=== PATIENT | male | born 1935 | race Hispanic/Latino ===

== ENCOUNTER 2016-11-30 08:00 | Outpatient (CLI) | payer MEDICARE ==
--- NOTE | 2016-11-30 13:59 | Cat Scan Report ---
CT CHEST WITHOUT CONTRAST: INDICATION: Pulmonary nodule. COMPARISON: 02/08/2016 and 10/07/[address] chest [address]s. FINDINGS: Noncontrast chest CT again demonstrates normal cardiomediastinal silhouette, atherosclerotic calcifications and streak artifact from left AICD with dual-chamber leads. Patent airway. Stable katelynn. Assessment of the great vessels and for detecting subtle lymphadenopathy limited due to lack of IV contrast. No aortic aneurysm. A precarinal lymph node measures 9 mm, axial image 56, series 3, previously 1.1 cm. No definite size significant axillary lymphadenopathy. Normal right thyroid lobe. Left thyroid lobe again not clearly visible with diffuse, approximately 5 x 2.5 cm homogenous soft tissue density occupying that region and extending posteriorly into the superior mediastinum/prevertebral, axial image 16 and measuring 48 HU. Extensive emphysematous changes with greatest involvement of the upper lobes. Multiple bilateral pulmonary nodules again noted and overall larger in size, some as follows: 1. Possibly 2 adjacent or a lobulated right lower lobe nodule is now 6 mm, axial image 213, series 2, previously 5 mm. 2. A left lower lobe peripheral nodule posteromedially is now 6 mm, axial image 197, series 2, previously 3 mm. 3. A more inferior left lower lobe nodule posteriorly is 1.5 cm, axial image 219, series 2, previously 1.4 cm. 4. Peripheral left lower lobe pleural-based density is now 2.1 x 1.2 cm, axial image 204, series 2, previously 1.4 x 0.8 cm. Nonspecific distal esophageal wall thickening, not excluded for gastroesophageal reflux and/or hiatal hernia, amongst others. Cholecystectomy clips and mild bilateral perinephric stranding also again seen. Stable sternotomy wires, demineralized bones and mild multilevel thoracic spine degenerative spurring. CONCLUSION: 1. Interval worsening with enlargement of bilateral lower lobe metastatic nodules, as described, of uncertain primary at this time. The largest nodule at the left lung base posteriorly again accessible for percutaneous biopsy, if needed. 2. Various other stable findings, including left lower neck presumed thyroid mass, left AICD, cholecystectomy and sternotomy, amongst others, as detailed above. Thank you for the opportunity to participate in this patient's care.
== END 2016-11-30 08:01 | disposition home or self-care (01) ==
LOC: CT 08:00
PROVIDERS: ATTEND Specialist
DX: R91.1 Solitary pulmonary nodule (principal); K21.9 Gastro-esophageal reflux disease without esophagitis; K44.9 Diaphragmatic hernia without obstruction or gangrene; Z90.49 Acquired absence of other specified parts of digestive tract; Z98.890 Other specified postprocedural states
CPT/HCPCS: 71250

== ENCOUNTER 2017-01-31 06:45 | Day surgery (SDC) | payer MEDICARE ==
[2017-01-31 07:37] LABS: Hematocrit 36.3 % (35.5-45.6); Hemoglobin 12.1 gm/dl (11.8-15.2); Mean Corpuscular HGB Conc 33 % (32-34); Mean Corpuscular Hemoglobin 32 pg (28-32); Mean Corpuscular Volume 95 fl (84-94); Platelet Count 180 K/mm3 (140-440); Red Blood Count 3.84 M/mm3 (3.65-5.03); Red Cell Distribution Width 15.1 % (13.2-15.2); White Blood Count 6.1 K/mm3 (4.5-11.0)
[2017-01-31 07:47] LABS: INR 1.02 (0.87-1.13)
[2017-01-31 07:48] LABS: Partial Thromboplastin Time 32.1 Sec. (24.2-36.6)
== END 2017-01-31 09:05 | disposition home or self-care (01) ==
LOC: OPU 06:45 → EDSTATUS 08:30 → OPU 09:05
PROVIDERS: ATTEND Specialist
DX: R91.8 Other nonspecific abnormal finding of lung field (principal); Z53.29 Procedure and treatment not carried out because of patient's decision for other reasons; I10 Essential (primary) hypertension; E78.5 Hyperlipidemia, unspecified; J44.9 Chronic obstructive pulmonary disease, unspecified; Z96.652 Presence of left artificial knee joint; Z95.810 Presence of automatic (implantable) cardiac defibrillator; Z87.891 Personal history of nicotine dependence; Z72.89 Other problems related to lifestyle; Z79.899 Other long term (current) drug therapy; Z79.01 Long term (current) use of anticoagulants; Z83.3 Family history of diabetes mellitus; Z81.8 Family history of other mental and behavioral disorders; Z82.49 Family history of ischemic heart disease and other diseases of the circulatory system
CPT/HCPCS: 36415; 85027; 85610; 85730

== ENCOUNTER 2018-03-19 09:42 | Outpatient (CLI) | payer MEDICARE ==
--- NOTE | 2018-03-19 14:06 | Cat Scan Report ---
CT HEAD WITHOUT CONTRAST: HISTORY: Lung mass. TECHNIQUE: Sequential CT images without contrast. FINDINGS: Non-contrast CT of the head is submitted demonstrating central and cortical atrophy. There are low density changes in the periventricular white matter. There is no intracranial hemorrhage or mass effect. There is no shift of the midline. Basilar cisterns are patent. The included portions of the paranasal sinuses and mastoid air cells are clear. IMPRESSION: Senescent changes as noted. No acute intracranial process. No evidence for metastatic disease to the brain on noncontrast CT.
--- NOTE | 2018-03-19 14:12 | Cat Scan Report ---
CT CHEST WITHOUT CONTRAST: HISTORY: Lung mass. COMPARISON: 11/30/16. TECHNIQUE: Helical CT in 1.25mm intervals without IV contrast. Sagittal and coronal reformatted images. FINDINGS: Thyroid gland: Diffuse enlargement of the left thyroid lobe is again noted and unchanged. The right thyroid lobe is atrophic. Tracheobronchial tree: Normal. Esophagus: Normal. Heart: Mild cardiomegaly is present which appears slightly increased since the previous exam. Pacemaker device is unchanged. Pericardium: Normal. Mediastinum: No bulky mediastinal adenopathy or mass has developed. Stable 1.2 cm precarinal lymph node. Lung Soto: Advanced emphysematous changes are again noted. A subpleural mass in the posterior left lower lobe has increased from 1.8 cm to 2.2 cm. 8mm nodule in the posterior right lower lobe is unchanged. There is linear subpleural scarring in the lateral left lower lobe which has decreased in prominence. No evidence for new nodule or infiltrate. Pleural Spaces: Normal. Musculoskeletal: Mild osteopenia. No fracture or suspicious bony lesion is appreciated. IMPRESSION: The left lower lobe mass has increased from 1.8 cm to 2.2 cm. 8mm nodule in the right lower lobe is unchanged. Advanced emphysema. Mild cardiomegaly, slightly increased since the previous exam.
== END 2018-03-19 09:43 | disposition home or self-care (01) ==
LOC: CT 09:42
PROVIDERS: ATTEND Specialist
DX: J43.8 Other emphysema (principal); I51.7 Cardiomegaly; E03.4 Atrophy of thyroid (acquired); J98.4 Other disorders of lung; G31.9 Degenerative disease of nervous system, unspecified; E88.89 Other specified metabolic disorders; E04.9 Nontoxic goiter, unspecified; M85.88 Other specified disorders of bone density and structure, other site; R90.82 White matter disease, unspecified; R91.8 Other nonspecific abnormal finding of lung field; W19.XXXA Unspecified fall, initial encounter; Z95.0 Presence of cardiac pacemaker; Y93.89 Activity, other specified; Y92.89 Other specified places as the place of occurrence of the external cause; Y99.8 Other external cause status
CPT/HCPCS: 70450; 71250

== ENCOUNTER 2018-06-12 07:00 | Day surgery (SDC) | payer MEDICARE ==
[2018-06-12 08:57] LABS: Basophils % (Auto) 0.5 % (0.0-1.8); Eosinophils # (Auto) 0.2 K/mm3 (0.0-0.4); Eosinophils % (Auto) 3.5 % (0.0-4.3); Hematocrit 37.9 % (35.5-45.6); Hemoglobin 12.8 gm/dl (11.8-15.2); Lymphocytes # (Auto) 1.1 K/mm3 (1.2-5.4); Lymphocytes % (Auto) 18.1 % (13.4-35.0); Mean Corpuscular HGB Conc 34 % (32-34); Mean Corpuscular Hemoglobin 31 pg (28-32); Mean Corpuscular Volume 93 fl (84-94); Monocytes # (Auto) 0.5 K/mm3 (0.0-0.8); Monocytes % (Auto) 7.8 % (0.0-7.3); Platelet Count 151 K/mm3 (140-440); Red Blood Count 4.07 M/mm3 (3.65-5.03); Red Cell Distribution Width 14.6 % (13.2-15.2)
[2018-06-12 09:07] LABS: INR 0.99 (0.87-1.13)
[2018-06-12] MEDS ORDERED: SUBLIMAZE IV ONE (09:19)
[2018-06-12] MEDS ORDERED: VERSED IV ONE (09:19)
--- NOTE | 2018-06-12 11:14 | XRay Report ---
AP CHEST: HISTORY: Left lung mass, pneumothorax, shortness of breath Recent CT-guided left lung biopsy was performed on an approximate 2 cm left lower lobe mass. CT at the end of the biopsy demonstrated a small to medium left pneumothorax measuring 2.5 cm in thickness at the left lung base. Immediate chest x-ray was obtained. A small left basilar pneumothorax is identified on portable chest x-ray which is estimated at less than 10%. A followup study in 2 hours will be ordered. The patient is asymptomatic. The lungs are hyperinflated but clear otherwise. Heart size is borderline to mildly increased. CABG changes and pacemaker device are noted. IMPRESSION: Small left pneumothorax as described.
--- NOTE | 2018-06-12 12:55 | XRay Report ---
AP CHEST: HISTORY: Followup left pneumothorax. Increasing shortness of breath The small left basilar pneumothorax has not significantly changed since 1053 hrs. The lungs remain hyperinflated but clear. Heart and mediastinal structures are stable. No new findings. IMPRESSION: Stable small left pneumothorax.
[2018-06-12 13:54] VITALS: BP 110/91
--- NOTE | 2018-06-12 16:08 | Cat Scan Report ---
CT BIOPSY LUNG LEFT History: Left lung mass. Description of procedure: Informed consent was obtained. Sterile technique was utilized. 1% lidocaine was utilized for skin anesthesia. Low-dose Versed and fentanyl was utilized for conscious sedation. The patient was sedated for 15 minutes. Intraobserver time of [address] guidance, a 19-gauge introducer needle was advanced to the leading edge of a 1.8 cm left lower lobe mass. A single 2.2 cm 20-gauge core biopsy was obtained. Only one core biopsy could be obtained because the patient developed a small to medium left pneumothorax which measured 2.5 cm in thickness at the left lung base. The patient was asymptomatic but the procedure was terminated at this point. Followup portable chest x-rays were obtained at 1053 hrs. and 1232 hrs. to reevaluate the pneumothorax. The pneumothorax had not increased and was barely visible on chest x-ray. After observing the patient for approximately 5 hours, it was decided to repeat the CT chest to further evaluate for pneumothorax. Repeat exam demonstrated decrease in the left pneumothorax by 25-50% but it was still present. Pleural air had also crossed midline at the level of the CABG scar to the anterior right lung. The patient remained asymptomatic. The patient had an O2 sat of 98-99% on 2 L of oxygen. The patient is on home oxygen as well. The patient requested to go home and did not wish to stay overnight in the hospital. I spoke with the patient's son who was staying in the same house as the patient and explained the situation. He seemed dependable. A decision was made to discharge the patient to home with clear instructions to return immediately to the emergency department with the patient experienced increasing shortness of breath or chest pain. The patient and his son were in agreement. Impression: Successful CT-guided biopsy of the left lower lobe lung mass. The patient experienced a post biopsy left pneumothorax estimated at 10-20% which improved slightly prior to discharge as described above. The patient was counseled on the risks of going home and was given clear instructions to return to the emergency department if his condition deteriorated.
== END 2018-06-12 16:15 | disposition home or self-care (01) ==
LOC: CATHLABREC 07:00
PROVIDERS: ATTEND Specialist
DX: R91.1 Solitary pulmonary nodule (principal); J95.811 Postprocedural pneumothorax; I11.0 Hypertensive heart disease with heart failure; I50.22 Chronic systolic (congestive) heart failure; I25.118 Atherosclerotic heart disease of native coronary artery with other forms of angina pectoris; Z79.82 Long term (current) use of aspirin; Z79.01 Long term (current) use of anticoagulants
CPT/HCPCS: 32405; 36415; 77012; 85025; 85610; 85730; 88305; 88333; 88341; 88342; J2250; J3010; 88173

== ENCOUNTER 2018-07-29 14:16 | Outpatient (CLI) | payer MEDICARE ==
--- NOTE | 2018-07-29 17:31 | Cat Scan Report ---
FINAL REPORT EXAM: CT CHEST WO CON HISTORY: PULMONARY NODULE TECHNIQUE: CT examination of the chest without IV contrast PRIORS: None. FINDINGS: An electronic cardiac device obscures a portion of the left chest, limiting the examination, due to metal artifact. Cable entry is via the left subclavian vein. Postsurgical changes with midline median sternotomy suggest prior CABG procedure. Nonspecific enlargement left thyroid lobe with substernal extension and slight right tracheal deviation. Normal cardiac size without pericardial effusion. Normal caliber thoracic aorta with moderate to severe calcified atherosclerotic plaque. There is also scattered noncalcified atherosclerotic plaque. Dependant superficial plaque calcification in the right abdominal aorta. No hilar mass or mediastinal adenopathy. Normal-appearing esophagus. Degenerative change in the regional skeleton. No evidence of acute fracture or significant osseous lesion. No pneumothorax or pleural effusion. Bilateral pulmonary emphysema with scattered pulmonary interstitial scarring. Multiple pulmonary nodules in bilateral lower lobes, more numerous and larger on the left. The largest on the right side 8 mm. Largest on the left side is 21 mm in the posterior CP angle region. Irregularly marginated subpleural left lower lobe additional adjacent lateral pulmonary nodule is 19 mm. IMPRESSION: Multiple bilateral pulmonary nodules, more numerous in the left lower lobe, may reflect neoplasm, possibly metastasis. Differential includes inflammatory, infectious, or granulomatous nodules
== END 2018-07-29 14:17 | disposition home or self-care (01) ==
LOC: CT 14:16
PROVIDERS: ATTEND Specialist
DX: R91.1 Solitary pulmonary nodule (principal); I25.10 Atherosclerotic heart disease of native coronary artery without angina pectoris; I11.0 Hypertensive heart disease with heart failure; I50.22 Chronic systolic (congestive) heart failure; E78.00 Pure hypercholesterolemia, unspecified; J44.9 Chronic obstructive pulmonary disease, unspecified; M10.9 Gout, unspecified; E03.9 Hypothyroidism, unspecified; Z87.891 Personal history of nicotine dependence
CPT/HCPCS: 71250

== ENCOUNTER 2019-04-12 22:36 | Emergency (ER) | payer MEDICARE ==
[2019-04-12] MEDS ORDERED: ZOFRAN IV ONE (23:47)
[2019-04-12] MEDS ORDERED: MORPHINE IV ONE (23:47)
--- NOTE | 2019-04-12 23:47 | Emergency Department Report ---
ED Abdominal Pain HPI - General Chief Complaint: Urogenital-Male Stated Complaint: PELVIC PAIN Time Seen by Provider: 04/12/19 23:31 Source: patient, EMS Mode of arrival: Stretcher Limitations: No Limitations - History of Present Illness Initial Comments: Mr. Ramirez is an 84 yo pleasant male with hx of CAD, CKD, HTN, CHF who presents with left groin pain and tender hernia. Gradual onset of severe left groin pain at site of chronic hernia. Brought by EMS. Had surgery for hernia 4-5 years ago. No vomiting. No constipation. Severe persistent pain, sharp. MD Complaint: other (groin hernia pain) -: Gradual, This evening (1899) Severity: severe Severity scale (0 -10): 7 Consistency: constant Worsens With: movement, other (tenderness) - Related Data Home Medications Medication Instructions Recorded Confirmed Last Taken Alfuzosin HCl [Uroxatral] 10 mg PO ONCE 11/25/13 06/12/18 06/11/18 Allopurinol [Zyloprim] 300 mg PO DAILY 11/25/13 06/12/18 06/11/18 Digoxin [Lanoxin] 0.125 mg PO DAILY 11/25/13 06/12/18 06/11/18 Finasteride 5 mg PO DAILY 11/25/13 06/12/18 06/11/18 HYDROcodone/ACETAMINOPHEN 7.5 - 500 mg PO Q6H PRN 11/25/13 06/12/18 6 Months Ago [Hydrocodone Acetaminophen(Nf) ~12/13/17 7.5/500 mg Tab] Levothyroxine [Synthroid] 88 mg PO DAILY 11/25/13 06/12/18 06/11/18 Rosuvastatin (Nf) [Crestor] 10 mg PO QHS 11/25/13 06/12/18 06/11/18 Tiotropium [Spiriva] 18 mg IH DAILY 11/25/13 06/12/18 2 Weeks Ago ~05/29/18 Budesoni/Formotero 160-4.5(Nf) 2 puff IH BID 04/10/15 06/12/18 06/11/18 [Symbicort 160-4.5 (Nf)] Metoprolol [Lopressor TAB] 50 mg PO DAILY 01/31/17 06/12/18 06/11/18 Rivaroxaban [Xarelto] 15 mg PO DAILY 06/12/18 06/12/18 06/09/18 Previous Rx's Medication Instructions Recorded Last Taken Type Docusate Sodium [Colace] 100 mg PO BID 15 Days #30 capsule 04/13/19 Unknown Rx Allergies Allergy/AdvReac Type Severity Reaction Status Date / Time No Known Allergies Allergy Verified 11/25/13 11:30 ED Review of Systems ROS: Stated complaint: PELVIC PAIN Other details as noted in HPI Comment: All other systems reviewed and negative Constitutional: denies: fever, malaise Respiratory: denies: cough Cardiovascular: denies: chest pain ED Past Medical Hx - Past Medical History Previous Medical History?: Yes Hx Hypertension: Yes Hx Heart Attack/AMI: Yes (X2) Hx Congestive Heart Failure: Yes Hx Diabetes: No Hx Asthma: No Hx COPD: Yes - Surgical History Past Surgical History?: Yes Hx Coronary Stent: No Hx Open Heart Surgery: Yes (X2) Hx Pacemaker: Yes Hx Internal Defibrillator: Yes Hx Appendectomy: No Hx Breast Surgery: No Additional Surgical History: bypass 1995, knee replacement 2003, hernia repair, - Social History Smoking Status: Former Smoker Substance Use Type: None - Medications Home Medications: Home Medications Medication Instructions Recorded Confirmed Last Taken Type Alfuzosin HCl [Uroxatral] 10 mg PO ONCE 11/25/13 06/12/18 06/11/18 History Allopurinol [Zyloprim] 300 mg PO DAILY 11/25/13 06/12/18 06/11/18 History Digoxin [Lanoxin] 0.125 mg PO DAILY 11/25/13 06/12/18 06/11/18 History Finasteride 5 mg PO DAILY 11/25/13 06/12/18 06/11/18 History HYDROcodone/ACETAMINOPHEN 7.5 - 500 mg PO Q6H PRN 11/25/13 06/12/18 6 Months Ago History [Hydrocodone Acetaminophen(Nf) ~12/13/17 7.5/500 mg Tab] Levothyroxine [Synthroid] 88 mg PO DAILY 11/25/13 06/12/18 06/11/18 History Rosuvastatin (Nf) [Crestor] 10 mg PO QHS 11/25/13 06/12/18 06/11/18 History Tiotropium [Spiriva] 18 mg IH DAILY 11/25/13 06/12/18 2 Weeks Ago History ~05/29/18 Budesoni/Formotero 160-4.5(Nf) 2 puff IH BID 04/10/15 06/12/18 06/11/18 History [Symbicort 160-4.5 (Nf)] Metoprolol [Lopressor TAB] 50 mg PO DAILY 01/31/17 06/12/18 06/11/18 History Rivaroxaban [Xarelto] 15 mg PO DAILY 06/12/18 06/12/18 06/09/18 History Docusate Sodium [Colace] 100 mg PO BID 15 Days #30 capsule 04/13/19 Unknown Rx ED Physical Exam - General Limitations: No Limitations General appearance: alert, in no apparent distress - Head Head exam: Present: atraumatic, normocephalic - Eye Eye exam: Present: normal appearance - ENT ENT exam: Present: mucous membranes moist - Neck Neck exam: Present: normal inspection, full ROM - Respiratory Respiratory exam: Present: normal lung sounds bilaterally. Absent: respiratory distress, wheezes, rales, rhonchi - Cardiovascular Cardiovascular Exam: Present: regular rate, normal rhythm, normal heart sounds. Absent: systolic murmur, diastolic murmur, rubs, gallop - GI/Abdominal GI/Abdominal exam: Present: soft, normal bowel sounds. Absent: distended, tenderness, guarding, rebound - External exam: Present: other (left inguinal groin horizontal incisional scar, tender tense hernia underlying scar) - Extremities Exam Extremities exam: Present: normal inspection - Back Exam Back exam: Present: normal inspection - Neurological Exam Neurological exam: Present: alert, oriented X3 - Psychiatric Psychiatric exam: Present: normal affect, normal mood - Skin Skin exam: Present: warm, dry, intact, normal color. Absent: rash ED Course Vital Signs 04/12/19 04/13/19 04/13/19 23:21 00:00 00:01 Temperature 98.1 F Pulse Rate 68 74 Respiratory 14 15 12 Rate Blood Pressure 161/89 152/74 Blood Pressure 161/89 [Left] O2 Sat by Pulse 100 96 Oximetry 04/13/19 04/13/19 00:30 02:11 Temperature Pulse Rate 131 H Respiratory 15 13 Rate Blood Pressure 131/65 Blood Pressure [Left] O2 Sat by Pulse 93 Oximetry ED Medical Decision Making - Lab Data Result diagrams: 04/12/19 23:59 05/19/19 23:59 - Medical Decision Making Mr. Ramirez presents with left groin direct inguinal incarcerated incisional hernia, easy reduced with manipulation. CT abdomen and pelvis did not reveal any bowel incarceration. There is a small to moderate fat-containing hernia left inguinal region. Patient ambulated without difficulty. He did not have return of pain. Discharged pain free with prescription for stool softener Colace. Referred to general surgeon. Critical care attestation.: If time is entered above; I have spent that time in minutes in the direct care of this critically ill patient, excluding procedure time. ED Disposition Clinical Impression: Incarcerated left inguinal hernia Disposition: DC-01 TO HOME OR SELFCARE Is pt being admited?: No Does the pt Need Aspirin: No Condition: Stable Instructions: Inguinal Hernia (ED) Prescriptions: Docusate Sodium [Colace] 100 mg PO BID 15 Days #30 capsule Referrals: SANTIAGO AUSTIN DO [Staff Physician] - 3-5 Days
[2019-04-13 00:14] LABS: Eosinophils # (Auto) 0.1 K/mm3 (0.0-0.4); Eosinophils % (Auto) 3.1 % (0.0-4.3); Hemoglobin 12.3 gm/dl (11.8-15.2); Lymphocytes # (Auto) 0.9 K/mm3 (1.2-5.4); Lymphocytes % (Auto) 17.8 % (13.4-35.0); Monocytes # (Auto) 0.4 K/mm3 (0.0-0.8); Monocytes % (Auto) 7.9 % (0.0-7.3)
[2019-04-13 00:34] LABS: Calcium 8.9 mg/dL (8.4-10.2)
[2019-04-13 01:38] LABS: Hematocrit 35.9 % (35.5-45.6); Mean Corpuscular HGB Conc 34 % (32-34); Mean Corpuscular Volume 97 fl (84-94); Platelet Count 185 K/mm3 (140-440); Red Blood Count 3.71 M/mm3 (3.65-5.03); Red Cell Distribution Width 14.4 % (13.2-15.2)
--- NOTE | 2019-04-13 02:16 | Cat Scan Report ---
PROCEDURE: CT ABDOMEN PELVIS WO CON TECHNIQUE: CT of the abdomen/pelvis obtained without contrast. HISTORY: incarcerated hernia left groin COMPARISONS: Compared to prior chest CT of 07/29/2018. FINDINGS: Stable pulmonary nodule seen in the lower lobes. Patient status post cholecystectomy. Liver, spleen, adrenal glands, pancreas unremarkable. Kidneys are symmetric in size. No obstructing stones visualized. No evidence hydronephrosis. No evidence of bowel dilatation or obstruction. No CT evidence for appendicitis or diverticulitis. Sm all to moderate fat-containing left inguinal hernia noted. No evidence of bowel incarceration. Bladder is unremarkable. IMPRESSION: No evidence of bowel dilatation or obstruction. No CT evidence for appendicitis or diverticulitis. Sm all to moderate fat-containing left inguinal hernia noted. No evidence of bowel incarceration. Stable pulmonary nodule seen in the lower lobes.. This document is electronically signed by Neyda Mackenzie MD., Apr 13 2019 02:14:36 AM ET
[2019-04-13 02:46] VITALS: BP 126/55
== END 2019-04-13 03:02 | disposition home or self-care (01) ==
LOC: ED 22:36
DX: K40.30 Unilateral inguinal hernia, with obstruction, without gangrene, not specified as recurrent (principal); I13.0 Hypertensive heart and chronic kidney disease with heart failure and stage 1 through stage 4 chronic kidney disease, or unspecified chronic kidney disease; I50.9 Heart failure, unspecified; N18.9 Chronic kidney disease, unspecified; J44.9 Chronic obstructive pulmonary disease, unspecified; Z95.0 Presence of cardiac pacemaker; Z87.891 Personal history of nicotine dependence
CPT/HCPCS: 36415; 74176; 80048; 85025; 96374; 96375; 99284; J2270; J2405